=== PATIENT | female | born 1960 | race Caucasian/White ===

== ENCOUNTER → 2019-07-23 | Outpatient (CLI) | payer BC ==
[~2019-07-23] VITALS: Ht 170.2 cm; Wt 99.8 kg
[2019-07-23 09:29] VITALS: BP 132/64
[2019-07-23 10:20] VITALS: BP 130/100
[2019-07-23 10:23] VITALS: BP 129/78
[2019-07-23 10:28] VITALS: BP 110/55
[2019-07-23 10:33] VITALS: BP 106/50
[2019-07-23 10:37] VITALS: BP 116/60
== END | disposition home or self-care (01) ==
LOC: CAT 08:39
DX: M71.38 Other bursal cyst, other site (principal); M54.16 Radiculopathy, lumbar region; M51.36 Other intervertebral disc degeneration, lumbar region; I10 Essential (primary) hypertension; E78.5 Hyperlipidemia, unspecified; E66.09 Other obesity due to excess calories; E07.9 Disorder of thyroid, unspecified; M47.816 Spondylosis without myelopathy or radiculopathy, lumbar region; Z98.890 Other specified postprocedural states; Z79.899 Other long term (current) drug therapy